=== PATIENT | female | born 1995 | race Hispanic/Latino ===

== ENCOUNTER 2019-05-01 17:23 | Emergency (ER) | payer MEDICAID ==
[2019-05-01] MEDS ORDERED: SODIUM CHLORIDE 0.9% 1000ML 1,000 ML IV ONE (17:40)
[2019-05-01] MEDS ORDERED: ACETAMINOPHEN EXTRA STRENGTH 500 MG TABLET ONE (17:40)
[2019-05-01 18:02] LABS: BASOPHILS % (AUTO) 0.2 % (0.0-5.0); EOSINOPHILS % (AUTO) 0.8 % (0.0-8.0); HEMATOCRIT 38.5 % (36-48); LYMPHOCYTES % (AUTO) 22.1 % (21.0-51.0); MEAN CORPUSCULAR HEMOGLOBIN 30.3 pg (27.0-33.0); MEAN CORPUSCULAR VOLUME 89.1 fL (79-99); MONOCYTES % (AUTO) 6.5 % (3.0-13.0); NEUTROPHILS % (AUTO) 70.3 % (40.0-77.0); PLATELET COUNT (AUTO) 227 K/uL (130-400); RED BLOOD CELL COUNT(AUTO) 4.32 MIL/uL (4.00-5.50); WHITE BLOOD COUNT (AUTO) 8.5 K/uL (4.8-10.8)
== END 2019-05-01 19:19 | disposition home or self-care (01) ==
LOC: EDH 17:23
DX: O20.0 Threatened abortion (principal); Z98.890 Other specified postprocedural states; Z3A.01 Less than 8 weeks gestation of pregnancy
CPT/HCPCS: 36415; 76801; 85025; 86900; 99285; 86901; J7030

== ENCOUNTER 2019-12-04 23:09 | Observation (INO) | payer MEDICAID ==
[~2019-12-04] VITALS: Ht 157.5 cm; Wt 68.5 kg
[2019-12-04] MEDS ORDERED: LACTATED RINGERS 1000ML IV PRN (23:30)
[2019-12-04 23:40] LABS: APPEARANCE,URINE Clear (CLEAR); BILIRUBIN,URINE Negative (NEGATIVE); COLOR,URINE Yellow (YELLOW); GLUCOSE, URINE (UA) Negative (NEGATIVE); KETONES,URINE Negative (NEGATIVE); LEUKOCYTE ESTERASE ,URINE Negative (NEGATIVE); NITRATE,URINE Negative (NEGATIVE); OCCULT BLOOD,URINE Negative (NEGATIVE); PH,URINE 7.5 (5.0-8.0); PROTEIN,URINE Negative (NEGATIVE)
[2019-12-04 23:45] VITALS: BP 124/74
[2019-12-05] MEDS ORDERED: PREN1TAB80 PO (01:10)
[2019-12-05] MEDS ORDERED: LACTATED RINGERS 1000ML 1,000 ML IV SCH (01:15)
[2019-12-05 02:11] LABS: HEMATOCRIT 36.5 % (36-48); MEAN CORPUSCULAR HEMOGLOBIN 31.6 pg (27.0-33.0); MEAN CORPUSCULAR VOLUME 93.1 fL (79-99); RED BLOOD CELL COUNT(AUTO) 3.92 MIL/uL (4.00-5.50); RED CELL DISTRIBUTION WIDTH 13.3 % (11.0-15.5); WHITE BLOOD COUNT (AUTO) 6.7 K/uL (4.8-10.8)
[2019-12-05] MEDS ORDERED: LACTATED RINGERS 1000ML 1,000 ML IV PRN (08:07)
[2019-12-06 06:12] LABS: HEPATITIS Bs ANTIGEN SCREEN P Negative (Negative)
== END 2019-12-05 11:10 | disposition home or self-care (01) ==
LOC: EDH 23:09 → LDH 23:10 → OBSVTOIN 12-05 08:07 → INTOOBSV 12-05 08:07
PROVIDERS: ADMIT Obstetrics & Gynecology; ATTEND Obstetrics & Gynecology
DX: O62.9 Abnormality of forces of labor, unspecified (principal); O34.219 Maternal care for unspecified type scar from previous cesarean delivery; Z3A.38 38 weeks gestation of pregnancy
CPT/HCPCS: 36415; 81003; 85027; 86592; 86850; 86900; 86901; 87340; 96360; 99284; G0378 ×12; 96361

== ENCOUNTER 2019-12-17 06:57 | Inpatient (IN) | payer MEDICAID ==
[~2019-12-17] VITALS: Ht 157.5 cm; Wt 68.9 kg
[2019-12-17] VITALS (18 sets, daily range): BP systolic 92–111; BP diastolic 48–68
[~2019-12-17 06:57] MED LIST: PREN1TAB80 PO
[2019-12-17] MEDS ORDERED: LACTATED RINGERS 1000ML 1,000 ML IV PRN (07:29)
[2019-12-17 07:48] LABS: APPEARANCE,URINE Clear (CLEAR); BILIRUBIN,URINE Negative (NEGATIVE); COLOR,URINE Yellow (YELLOW); GLUCOSE, URINE (UA) Negative (NEGATIVE); KETONES,URINE Negative (NEGATIVE); LEUKOCYTE ESTERASE ,URINE Negative (NEGATIVE); NITRATE,URINE Negative (NEGATIVE); OCCULT BLOOD,URINE Moderate (NEGATIVE); PH,URINE 7.5 (5.0-8.0); PROTEIN,URINE Negative (NEGATIVE); UROBILINOGEN,URINE 0.2 mg/dL (0.2-1.0)
[2019-12-17 07:50] LABS: HEMATOCRIT 39.1 % (36-48); MEAN CORPUSCULAR HEMOGLOBIN 31.6 pg (27.0-33.0); MEAN CORPUSCULAR HGB CONC 34.3 g/dL (32.0-36.0); MEAN CORPUSCULAR VOLUME 92.2 fL (79-99); RED BLOOD CELL COUNT(AUTO) 4.24 MIL/uL (4.00-5.50); RED CELL DISTRIBUTION WIDTH 13.2 % (11.0-15.5); WHITE BLOOD COUNT (AUTO) 7.3 K/uL (4.8-10.8)
[2019-12-17 07:51] LABS: BACTERIA,URINE Rare /HPF (None Seen); RBC,URINE 0-1 /HPF (0-1); SQUAMOUS EPITHELIAL CELL,UR Rare /HPF (0-2); WBC,URINE 0-1 /HPF (0-1)
[2019-12-17] MEDS ORDERED: CEFAZOLIN SODIUM 1 GM VIAL ONE (11:13)
[2019-12-17] MEDS ORDERED: METHYLERGONOVINE MALEATE 0.2 MG/1 ML ML ONE (11:13)
[2019-12-17] MEDS ORDERED: TRANEXAMIC ACID 1000MG/10ML ONE (11:13)
[2019-12-17] MEDS ORDERED: CALDOLOR 800MG+NS 250ML 250 ML IV ONE (11:14)
[2019-12-17] MEDS ORDERED: DURAMORPH PF1 MG/ML 10ML AMP IV ONE (11:25)
[2019-12-17] MEDS ORDERED: CEFAZOLIN SODIUM 1 GM VIAL IVP ONE (11:30)
[2019-12-17] MEDS ORDERED: FENTANYL CITRATE PF 50 MCG/1 ML 2ML VIAL ONE (11:40)
[2019-12-17] MEDS ORDERED: MEPERIDINE-PF 50 MG/ML SYG ONE (11:45)
[2019-12-17] MEDS ORDERED: BISACODYL 10 MG SUPP.RECT RC PRN (12:15)
[2019-12-17] MEDS ORDERED: ACETAMINOPHEN EXTRA STRENGTH 500 MG TABLET PO PRN (12:15)
[2019-12-17] MEDS ORDERED: MEPERIDINE-PF 75 MG/ML SYG IM PRN (12:15)
[2019-12-17] MEDS ORDERED: HYDROCODONE/ACETAMINOPHEN 5/325 MG TAB PO PRN (12:15)
[2019-12-17] MEDS ORDERED: OXYTOCIN-LR 20 UNITS/1000 ML 1,000 ML IV PRN (12:15)
[2019-12-17] MEDS ORDERED: LANOLIN 30GM OINTMENT TP PRN (12:15)
[2019-12-17] MEDS ORDERED: DEXTROSE 5 %-0.45 % NACL 1,000 ML IV PRN (12:15)
[2019-12-17] MEDS ORDERED: PROMETHAZINE HCL 25 MG/ML 1ML AMPULE IM PRN (12:15)
[2019-12-17] MEDS ORDERED: SODIUM CHLORIDE 0.9% 10 ML VIAL IVP PRN (12:15)
[2019-12-17] MEDS ORDERED: PHENYLEPHRINE HCL 10 MG/ML 1ML VIAL IV ONE (12:16)
[2019-12-17] MEDS ORDERED: OXYTOCIN 10 UNIT/1ML 10ML VIAL ONE (12:16)
[2019-12-17] MEDS ORDERED: METOCLOPRAMIDE 10 MG/2 ML VIAL ONE (12:16)
[2019-12-17] MEDS: DOCUSATE SODIUM 100 MG CAP PO SCH (20:35)
[2019-12-17] MEDS: SIMETHICONE 80 MG TAB.CHEW PO PRN (20:35)
--- NOTE | 2019-12-18 03:30 | NUR ---
Received SBAR from Precious Varela LVN. Pt awake & alert, denies incisional discomfort, reports discomfort to right shoulder. Encouraging to change position frequently & informing of plan for ambulation in am. Offering pain meds for discomfort, pt refusing at present.
[2019-12-18 03:47] VITALS: BP 104/58
[2019-12-18] MEDS: CALDOLOR 800MG+NS 250ML 250 ML IV SCH ×2 (03:54→04:15)
--- NOTE | 2019-12-18 04:00 | NUR ---
Reinforcing teaching on [place] scheduled, desired effects & possible common side effects. Pt voices understanding & agrees to plan.
[2019-12-18] MEDS ORDERED: NALOXONE HCL 0.4 MG/1 ML ML IVP PRN (06:30)
[2019-12-18] MEDS ORDERED: ONDANSETRON HCL 4 MG/2 ML VIAL IVP PRN (06:30)
[2019-12-18] MEDS ORDERED: DiphenhydrAMINE HCL 50 MG/ML VIAL IVP PRN (06:30)
[2019-12-18] MEDS ORDERED: LORATADINE 10 MG TABLET PO PRN (06:30)
[2019-12-18] MEDS ORDERED: EPHEDRINE SULFATE 50 MG/ML AMPULE IVP PRN (06:30)
--- NOTE | 2019-12-18 06:45 | NUR ---
Informing plan to discontinue f/c and assist to chair, pt voices understanding & agrees to plan. F/c easily removed, gonzales care given & changing gonzales pads. Pt tolerating procedure with minimal discomfort verbalized.
[2019-12-18 07:18] LABS: HEPATITIS Bs ANTIGEN SCREEN P Negative (Negative)
[2019-12-18] MEDS: ACETAMINOPHEN-CODEINE 300/30MG TAB PO PRN ×3 (07:31→21:12)
[2019-12-18 07:38] VITALS: BP 105/60
[2019-12-18] MEDS: DOCUSATE SODIUM 100 MG CAP PO SCH ×2 (09:18→21:12)
[2019-12-18] MEDS: SIMETHICONE 80 MG TAB.CHEW PO PRN ×2 (09:18→21:12)
[2019-12-18 11:27] VITALS: BP 91/51
[2019-12-18] MEDS: IBUPROFEN 600 MG TABLET PO PRN (14:53)
[2019-12-18 17:02] VITALS: BP 97/52
[2019-12-18] MEDS ORDERED: DIPH,PERTUSS(ACELL),TET VAC/PF 0.5 ML VIAL IM ONE (18:00)
[2019-12-18 19:35] VITALS: BP 103/73
[2019-12-18 23:00] VITALS: BP 109/68
[2019-12-19] MEDS: IBUPROFEN 600 MG TABLET PO PRN ×2 (02:06→08:00)
[2019-12-19 03:06] VITALS: BP 108/72
[2019-12-19 07:31] VITALS: BP 99/58
[2019-12-19] MEDS ORDERED: IBUP-2077 PO (08:22)
[2019-12-19] MEDS ORDERED: DOCU-116 PO (08:23)
[2019-12-19] MEDS ORDERED: ACET1TAB25 PO (08:23)
[2019-12-19] MEDS ORDERED: DIPH,PERTUSS(ACELL),TET VAC/PF 0.5 ML VIAL IM ONE (08:56)
[2019-12-19] MEDS: DOCUSATE SODIUM 100 MG CAP PO SCH (09:05)
[2019-12-19] MEDS: ACETAMINOPHEN-CODEINE 300/30MG TAB PO PRN (09:05)
[2019-12-19] MEDS: SIMETHICONE 80 MG TAB.CHEW PO PRN (09:05)
--- NOTE | 2019-12-19 10:20 | NUR ---
pt is discharged, verbal and written discharge instructions given, pls refer to exit care. informed of the follow up appointment, prescription given. informed to call the doctor for further concerns. pt voiced understanding to all things discussed. Addendum: 12/19/19 at 1038 by JANICE ZAVALA RN Amended: Links added.
--- NOTE | 2019-12-19 10:20 | NUR ---
pt is waiting for baby to be discharged.
[2019-12-19 11:23] VITALS: BP 107/65
--- NOTE | 2019-12-19 14:40 | NUR ---
pt is dismissed with baby in stable condition, brought to private car via wheelchair by Fiordaliza rollins Addendum: 12/19/19 at 1506 by JANICE ZAVALA RN Amended: Links added.
== END 2019-12-19 14:40 | disposition home or self-care (01) | DRG 540 ==
LOC: EDH 06:57 → OBSVTOIN 07:17 → LDH 07:17 → WSH 14:16
PROVIDERS: ADMIT Obstetrics & Gynecology; ATTEND Obstetrics & Gynecology
PROC: 3E0234Z Introduction of Serum, Toxoid and Vaccine into Muscle, Percutaneous Approach (ICD-10-PCS; 2019-12-17)
PROC: 10D00Z1 Extraction of Products of Conception, Low, Open Approach (ICD-10-PCS; principal; 2019-12-17 11:25)
DX: O34.211 Maternal care for low transverse scar from previous cesarean delivery (principal); O69.81X0 Labor and delivery complicated by cord around neck, without compression, not applicable or unspecified; O99.89 Other specified diseases and conditions complicating pregnancy, childbirth and the puerperium; N73.6 Female pelvic peritoneal adhesions (postinfective); Z37.0 Single live birth; O66.41 Failed attempted vaginal birth after previous cesarean delivery; Z3A.40 40 weeks gestation of pregnancy; Z23 Encounter for immunization; Z88.8 Allergy status to other drugs, medicaments and biological substances
CPT/HCPCS: 36415; 59510; 81001; 85027; 86592; 86850; 86900; 86901; 87340; 90715; A4344; G0378; J0690; J1741; J2175; J2210; J2274; J2370; J2590; J2765; J3010; J3490; J7120

== ENCOUNTER 2020-07-02 07:40 | Day surgery (SDC) | payer MEDICAID ==
[2020-06-29 15:54] LABS: BASOPHILS % (AUTO) 0.5 % (0.0-5.0); EOSINOPHILS % (AUTO) 0.8 % (0.0-8.0); HEMATOCRIT 40.8 % (36-48); LYMPHOCYTES % (AUTO) 23.4 % (21.0-51.0); MEAN CORPUSCULAR HEMOGLOBIN 32.3 pg (27.0-33.0); MEAN CORPUSCULAR HGB CONC 34.1 g/dL (32.0-36.0); MEAN CORPUSCULAR VOLUME 94.9 fL (79-99); MONOCYTES % (AUTO) 3.8 % (3.0-13.0); NEUTROPHILS % (AUTO) 71.3 % (40.0-77.0); PLATELET COUNT (AUTO) 271 K/uL (130-400); RED CELL DISTRIBUTION WIDTH 12.4 % (11.0-15.5); WHITE BLOOD COUNT (AUTO) 6.2 K/uL (4.8-10.8)
[2020-07-01 11:45] VITALS: BP 99/57
[2020-07-02] VITALS (16 sets, daily range): BP systolic 99–127; BP diastolic 47–80
[~2020-07-02] VITALS: Ht 157.5 cm; Wt 58.3 kg
[~2020-07-02 07:40] MED LIST changes: -PREN1TAB80 PO; +STRONG IODINE SOLN 14ML BOTTLE ONE
[2020-07-02] MEDS ORDERED: LACTATED RINGERS 1000ML 1,000 ML IV SCH (08:00)
[2020-07-02] MEDS ORDERED: CEFAZOLIN SODIUM 1 GM VIAL IVP ONE (08:00)
[2020-07-02] MEDS ORDERED: CALDOLOR 800MG+NS 250ML 250 ML IV PRN (08:00)
[2020-07-02] MEDS ORDERED: LIDOCAINE PF 2% 5ML ABBOJECT ONE (09:20)
[2020-07-02] MEDS ORDERED: PROPOFOL 10 MG/ML 20ML VIAL IV ONE ×2 (09:20→09:35)
[2020-07-02] MEDS ORDERED: MIDAZOLAM HCL 1 MG/ML 2ML VIAL ONE ×2 (09:20→10:35)
[2020-07-02] MEDS ORDERED: ONDANSETRON HCL 4 MG/2 ML VIAL ONE (09:21)
[2020-07-02] MEDS ORDERED: DEXAMETHASONE SOD PHOSPHATE 4 MG/ML 1ML VIAL ONE (09:21)
[2020-07-02] MEDS ORDERED: CEFAZOLIN SODIUM 1 GM VIAL ONE ×2 (09:33→09:35)
[2020-07-02] MEDS ORDERED: FENTANYL CITRATE PF 50 MCG/1 ML 2ML VIAL ONE (09:48)
[2020-07-02] MEDS ORDERED: MEPERIDINE-PF 25 MG/ML SYG ONE ×2 (10:25→10:33)
== END 2020-07-02 11:45 | disposition home or self-care (01) ==
LOC: DAH 07:40
PROVIDERS: ATTEND Obstetrics & Gynecology
DX: D06.0 Carcinoma in situ of endocervix (principal); Z20.822 Contact with and (suspected) exposure to COVID-19; N85.4 Malposition of uterus; F17.200 Nicotine dependence, unspecified, uncomplicated; Z98.890 Other specified postprocedural states; Z98.891 History of uterine scar from previous surgery; Z72.89 Other problems related to lifestyle; Z80.3 Family history of malignant neoplasm of breast
CPT/HCPCS: 36415 ×2; 57520; 84703; 85025; 86850 ×2; 86900 ×2; 86901 ×2; A4215; A4221; A4222; A4223; A4351; A4663; C9803; J0690 ×2; J1100; J1741; J2001; J2175 ×2; J2250 ×2; J2405; J2704 ×2; J3010; J7120; U0003

== ENCOUNTER 2022-01-11 08:40 | Emergency (ER) | payer MEDICAID ==
[~2022-01-11] VITALS: Ht 157.5 cm; Wt 57.2 kg
[2022-01-11 09:35] LABS: APPEARANCE,URINE CLEAR (CLEAR); BILIRUBIN,URINE NEGATIVE (NEGATIVE); COLOR,URINE YELLOW (YELLOW); GLUCOSE, URINE (UA) NEGATIVE (NEGATIVE); KETONES,URINE 5 mg/dL (NEGATIVE); LEUKOCYTE ESTERASE ,URINE NEGATIVE Leu/uL (NEGATIVE); NITRATE,URINE NEGATIVE (NEGATIVE); OCCULT BLOOD,URINE NEGATIVE (NEGATIVE); PROTEIN,URINE 10 mg/dL (NEGATIVE); UROBILINOGEN,URINE 0.2 mg/dL (0.2-1.0)
[2022-01-11 09:35] LABS: BASOPHILS % (AUTO) 0.9 % (0.0-5.0); EOSINOPHILS % (AUTO) 0.9 % (0.0-8.0); HEMATOCRIT 36.1 % (36-48); LYMPHOCYTES % (AUTO) 22.9 % (21.0-51.0); MEAN CORPUSCULAR HEMOGLOBIN 25.5 pg (27.0-33.0); MEAN CORPUSCULAR HGB CONC 31.9 g/dL (32.0-36.0); MONOCYTES % (AUTO) 7.4 % (3.0-13.0); NEUTROPHILS % (AUTO) 67.7 % (40.0-77.0); PLATELET COUNT (AUTO) 275 K/uL (130-400); RED BLOOD CELL COUNT(AUTO) 4.51 MIL/uL (4.00-5.50); RED CELL DISTRIBUTION WIDTH 16.1 % (11.0-15.5); WHITE BLOOD COUNT (AUTO) 4.5 K/uL (4.8-10.8)
[2022-01-11 09:39] LABS: HCG,QUALITATIVE URINE NEGATIVE (NEGATIVE)
[2022-01-11 09:55] LABS: ALBUMIN 3.9 g/dL (3.5-5.0); CREATININE 0.7 mg/dL (0.5-1.5); POTASSIUM 3.8 mmol/L (3.5-5.1); TOTAL PROTEIN, SERUM 7.5 g/dL (6.0-8.3)
[2022-01-11 09:58] LABS: BACTERIA,URINE Few /HPF (None Seen); WBC,URINE None Seen /HPF (0-1)
[2022-01-11 09:59] LABS: SQUAMOUS EPITHELIAL CELL,UR 0-2 /HPF (0-2)
[2022-01-11] MEDS ORDERED: IBUP-2070 PO (10:06)
[2022-01-11 10:14] VITALS: BP 121/56
== END 2022-01-11 10:21 | disposition home or self-care (01) ==
LOC: EDH 08:40
DX: R10.2 Pelvic and perineal pain (principal); Z90.89 Acquired absence of other organs; Z98.890 Other specified postprocedural states
CPT/HCPCS: 36415; 80053; 81001; 81025; 84703; 85025